=== PATIENT | male | born 1945 | race Caucasian/White ===

== ENCOUNTER 2021-02-06 08:34 | Outpatient (CLI) | payer MEDICARE | END 2021-02-06 23:59 | disposition home or self-care (01) | LOC: WOUND 08:34 | PROVIDERS: ATTEND Internal Medicine | DX: L89.45 Pressure ulcer of contiguous site of back, buttock and hip, unstageable (principal); L89.153 Pressure ulcer of sacral region, stage 3; L89.320 Pressure ulcer of left buttock, unstageable; L89.310 Pressure ulcer of right buttock, unstageable; I48.91 Unspecified atrial fibrillation; E44.0 Moderate protein-calorie malnutrition; Z68.25 Body mass index [BMI] 25.0-25.9, adult; Z86.16 Personal history of COVID-19; Z88.0 Allergy status to penicillin | CPT/HCPCS: 97597 ==

== ENCOUNTER → 2021-02-13 | Outpatient (CLI) | payer MEDICARE | END | disposition home or self-care (01) | LOC: WOUND 10:51 | PROVIDERS: ATTEND Internal Medicine | DX: L89.320 Pressure ulcer of left buttock, unstageable (principal); L89.310 Pressure ulcer of right buttock, unstageable; L89.150 Pressure ulcer of sacral region, unstageable; L89.45 Pressure ulcer of contiguous site of back, buttock and hip, unstageable; I48.91 Unspecified atrial fibrillation; E44.0 Moderate protein-calorie malnutrition; Z68.25 Body mass index [BMI] 25.0-25.9, adult; Z86.16 Personal history of COVID-19 | CPT/HCPCS: 97602 ==

== ENCOUNTER → 2021-02-20 | Outpatient (CLI) | payer MEDICARE | END | disposition home or self-care (01) | LOC: WOUND 10:56 | PROVIDERS: ATTEND Internal Medicine | DX: L89.153 Pressure ulcer of sacral region, stage 3 (principal); L89.320 Pressure ulcer of left buttock, unstageable; L89.310 Pressure ulcer of right buttock, unstageable; L89.45 Pressure ulcer of contiguous site of back, buttock and hip, unstageable; I48.91 Unspecified atrial fibrillation; E44.0 Moderate protein-calorie malnutrition; Z68.25 Body mass index [BMI] 25.0-25.9, adult; Z86.16 Personal history of COVID-19 | CPT/HCPCS: 97597 ==

== ENCOUNTER 2021-02-27 07:40 | Outpatient (CLI) | payer MEDICARE | END 2021-02-27 23:59 | disposition home or self-care (01) | LOC: WOUND 07:40 | PROVIDERS: ATTEND Internal Medicine | DX: L89.153 Pressure ulcer of sacral region, stage 3 (principal); L89.310 Pressure ulcer of right buttock, unstageable; L89.320 Pressure ulcer of left buttock, unstageable; L89.45 Pressure ulcer of contiguous site of back, buttock and hip, unstageable; E44.0 Moderate protein-calorie malnutrition; I48.91 Unspecified atrial fibrillation; Z86.16 Personal history of COVID-19; Z68.25 Body mass index [BMI] 25.0-25.9, adult; Z79.01 Long term (current) use of anticoagulants; Z87.01 Personal history of pneumonia (recurrent); Z88.4 Allergy status to anesthetic agent; Z88.0 Allergy status to penicillin | CPT/HCPCS: 97597 ==

== ENCOUNTER 2021-03-08 08:47 | Outpatient (CLI) | payer MEDICARE | END 2021-03-08 23:59 | disposition home or self-care (01) | LOC: WOUND 08:47 | PROVIDERS: ATTEND Internal Medicine | DX: L89.323 Pressure ulcer of left buttock, stage 3 (principal); L89.313 Pressure ulcer of right buttock, stage 3; L89.153 Pressure ulcer of sacral region, stage 3; L89.45 Pressure ulcer of contiguous site of back, buttock and hip, unstageable; E44.0 Moderate protein-calorie malnutrition; I48.91 Unspecified atrial fibrillation; Z86.16 Personal history of COVID-19; Z68.25 Body mass index [BMI] 25.0-25.9, adult; Z79.01 Long term (current) use of anticoagulants; Z87.01 Personal history of pneumonia (recurrent); Z88.4 Allergy status to anesthetic agent | CPT/HCPCS: 97597 ==

== ENCOUNTER 2021-03-10 12:28 | Outpatient (CLI) | payer MEDICARE | END 2021-03-10 23:59 | disposition home or self-care (01) | LOC: WOUND 12:28 | PROVIDERS: ATTEND Internal Medicine | DX: L89.45 Pressure ulcer of contiguous site of back, buttock and hip, unstageable (principal); E44.0 Moderate protein-calorie malnutrition; I48.91 Unspecified atrial fibrillation; Z86.16 Personal history of COVID-19; Z68.25 Body mass index [BMI] 25.0-25.9, adult; Z79.01 Long term (current) use of anticoagulants; Z87.01 Personal history of pneumonia (recurrent); Z88.0 Allergy status to penicillin | CPT/HCPCS: G0463 ==

== ENCOUNTER 2021-03-13 11:01 | Outpatient (CLI) | payer MEDICARE | END 2021-03-13 23:59 | disposition home or self-care (01) | LOC: WOUND 11:01 | PROVIDERS: ATTEND Internal Medicine | DX: L89.320 Pressure ulcer of left buttock, unstageable (principal); L89.150 Pressure ulcer of sacral region, unstageable; L89.45 Pressure ulcer of contiguous site of back, buttock and hip, unstageable; E44.0 Moderate protein-calorie malnutrition; I48.91 Unspecified atrial fibrillation; Z86.16 Personal history of COVID-19; Z68.25 Body mass index [BMI] 25.0-25.9, adult; Z79.01 Long term (current) use of anticoagulants; Z87.01 Personal history of pneumonia (recurrent); Z88.0 Allergy status to penicillin | CPT/HCPCS: 97602 ==

== ENCOUNTER 2021-03-15 11:04 | Outpatient (CLI) | payer MEDICARE | END 2021-03-15 23:59 | disposition home or self-care (01) | LOC: WOUND 11:04 | PROVIDERS: ATTEND Internal Medicine | DX: L89.323 Pressure ulcer of left buttock, stage 3 (principal); L89.313 Pressure ulcer of right buttock, stage 3; L89.45 Pressure ulcer of contiguous site of back, buttock and hip, unstageable; I48.91 Unspecified atrial fibrillation; E44.0 Moderate protein-calorie malnutrition; Z68.25 Body mass index [BMI] 25.0-25.9, adult; Z86.16 Personal history of COVID-19; Z88.0 Allergy status to penicillin; Z87.01 Personal history of pneumonia (recurrent); Z79.01 Long term (current) use of anticoagulants | CPT/HCPCS: 97597 ==

== ENCOUNTER → 2021-03-17 | Outpatient (CLI) | payer MEDICARE | END | disposition home or self-care (01) | LOC: WOUND 12:39 | PROVIDERS: ATTEND Internal Medicine | DX: L89.320 Pressure ulcer of left buttock, unstageable (principal); L89.310 Pressure ulcer of right buttock, unstageable; L89.45 Pressure ulcer of contiguous site of back, buttock and hip, unstageable; I48.91 Unspecified atrial fibrillation; E44.0 Moderate protein-calorie malnutrition; Z68.25 Body mass index [BMI] 25.0-25.9, adult; Z86.16 Personal history of COVID-19; Z88.0 Allergy status to penicillin | CPT/HCPCS: 97602 ==

== ENCOUNTER → 2021-03-20 | Outpatient (CLI) | payer MEDICARE | END | disposition home or self-care (01) | LOC: WOUND 10:58 | PROVIDERS: ATTEND Internal Medicine | DX: L89.320 Pressure ulcer of left buttock, unstageable (principal); L89.310 Pressure ulcer of right buttock, unstageable; L89.45 Pressure ulcer of contiguous site of back, buttock and hip, unstageable; I48.91 Unspecified atrial fibrillation; E44.0 Moderate protein-calorie malnutrition; Z68.25 Body mass index [BMI] 25.0-25.9, adult; Z86.16 Personal history of COVID-19; Z88.0 Allergy status to penicillin | CPT/HCPCS: 97602 ==

== ENCOUNTER → 2021-03-22 | Outpatient (CLI) | payer MEDICARE | END | disposition home or self-care (01) | LOC: WOUND 11:00 | PROVIDERS: ATTEND Internal Medicine | DX: L89.320 Pressure ulcer of left buttock, unstageable (principal); L89.153 Pressure ulcer of sacral region, stage 3; L89.45 Pressure ulcer of contiguous site of back, buttock and hip, unstageable; I48.91 Unspecified atrial fibrillation; E44.0 Moderate protein-calorie malnutrition; Z68.25 Body mass index [BMI] 25.0-25.9, adult; Z86.16 Personal history of COVID-19; Z88.0 Allergy status to penicillin | CPT/HCPCS: 97597 ==

== ENCOUNTER → 2021-03-24 | Outpatient (CLI) | payer MEDICARE | END | disposition home or self-care (01) | LOC: WOUND 11:00 | PROVIDERS: ATTEND Internal Medicine | DX: L89.320 Pressure ulcer of left buttock, unstageable (principal); L89.45 Pressure ulcer of contiguous site of back, buttock and hip, unstageable; I48.91 Unspecified atrial fibrillation; E44.0 Moderate protein-calorie malnutrition; Z68.25 Body mass index [BMI] 25.0-25.9, adult; Z86.16 Personal history of COVID-19; Z88.0 Allergy status to penicillin | CPT/HCPCS: 97602 ==

== ENCOUNTER 2021-03-27 14:42 | Outpatient (CLI) | payer MEDICARE | END 2021-03-27 23:59 | disposition home or self-care (01) | LOC: WOUND 14:42 | PROVIDERS: ATTEND Internal Medicine | DX: L89.320 Pressure ulcer of left buttock, unstageable (principal); L89.310 Pressure ulcer of right buttock, unstageable; L89.153 Pressure ulcer of sacral region, stage 3; L89.45 Pressure ulcer of contiguous site of back, buttock and hip, unstageable; E44.0 Moderate protein-calorie malnutrition; I48.91 Unspecified atrial fibrillation; Z86.16 Personal history of COVID-19; Z68.25 Body mass index [BMI] 25.0-25.9, adult; Z79.01 Long term (current) use of anticoagulants; Z87.01 Personal history of pneumonia (recurrent) | CPT/HCPCS: 97602 ==

== ENCOUNTER → 2021-03-29 | Outpatient (CLI) | payer MEDICARE | END | disposition home or self-care (01) | LOC: WOUND 13:58 | PROVIDERS: ATTEND Internal Medicine | DX: L89.323 Pressure ulcer of left buttock, stage 3 (principal); L89.153 Pressure ulcer of sacral region, stage 3; L89.45 Pressure ulcer of contiguous site of back, buttock and hip, unstageable; I48.91 Unspecified atrial fibrillation; E44.0 Moderate protein-calorie malnutrition; Z68.25 Body mass index [BMI] 25.0-25.9, adult; Z86.16 Personal history of COVID-19; Z88.0 Allergy status to penicillin | CPT/HCPCS: 97597 ==

== ENCOUNTER → 2021-03-31 | Outpatient (CLI) | payer MEDICARE | END | disposition home or self-care (01) | LOC: WOUND 08:41 | PROVIDERS: ATTEND Internal Medicine | DX: L89.323 Pressure ulcer of left buttock, stage 3 (principal); L89.153 Pressure ulcer of sacral region, stage 3; L89.45 Pressure ulcer of contiguous site of back, buttock and hip, unstageable; I48.91 Unspecified atrial fibrillation; E44.0 Moderate protein-calorie malnutrition; Z68.25 Body mass index [BMI] 25.0-25.9, adult; Z86.16 Personal history of COVID-19; Z88.0 Allergy status to penicillin | CPT/HCPCS: G0463 ==

== ENCOUNTER 2021-04-03 11:01 | Outpatient (CLI) | payer MEDICARE | END 2021-04-03 23:59 | disposition home or self-care (01) | LOC: WOUND 11:01 | PROVIDERS: ATTEND Internal Medicine | DX: L89.323 Pressure ulcer of left buttock, stage 3 (principal); L89.153 Pressure ulcer of sacral region, stage 3; L89.45 Pressure ulcer of contiguous site of back, buttock and hip, unstageable; I48.91 Unspecified atrial fibrillation; E44.0 Moderate protein-calorie malnutrition; Z68.25 Body mass index [BMI] 25.0-25.9, adult; Z86.16 Personal history of COVID-19; Z88.0 Allergy status to penicillin; Z87.01 Personal history of pneumonia (recurrent) | CPT/HCPCS: 97602 ==

== ENCOUNTER 2021-04-05 11:01 | Outpatient (CLI) | payer MEDICARE | END 2021-04-05 23:59 | disposition home or self-care (01) | LOC: WOUND 11:01 | PROVIDERS: ATTEND Internal Medicine | DX: L89.323 Pressure ulcer of left buttock, stage 3 (principal); L89.153 Pressure ulcer of sacral region, stage 3; L89.45 Pressure ulcer of contiguous site of back, buttock and hip, unstageable; E44.0 Moderate protein-calorie malnutrition; I48.91 Unspecified atrial fibrillation; Z86.16 Personal history of COVID-19; Z68.25 Body mass index [BMI] 25.0-25.9, adult; Z79.01 Long term (current) use of anticoagulants; Z87.01 Personal history of pneumonia (recurrent) | CPT/HCPCS: G0463 ==